=== PATIENT | male | born 1990 | race Caucasian/White ===

== ENCOUNTER 2018-10-20 03:26 | Emergency (ER) | payer MEDICAID ==
--- NOTE | 2018-10-20 04:20 | ED Physician Chart ---
ED Chief Complaint/HPI - Patient Information Date Seen:: 10/20/18 Time Seen:: 04:12 Chief Complaint:: leg pains History of Present Illness:: 28 yr old male with diabetes hypertension with foot pains bilaterally rt worse than left burning type intermittent worse with movement of the ankle worse on rt states does work out in the gym and his feet Allergies:: Allergies Allergy/AdvReac Type Severity Reaction Status Date / Time No Known Allergies Allergy Verified 10/20/18 03:31 Vitals:: Vital Signs - 8 hr 10/20/18 03:31 Temp 97.0 F HR 98 RR 18 BP 162/93 O2 Sat % 98 ED Review of Systems - Review of Systems General/Constitutional: No fever Skin: No skin lesions Head: No headache Eyes: No loss of vision ENT: No earache Neck: No neck pain Cardio Vascular: No chest pain Pulmonary: No SOB GI: No nausea, No vomiting G/U: No dysuria Endocrine: No polyuria ED Past Medical History - Past Medical History Past Medical History: HTN, DM Family Medical History - Family Member Mother Hx Family Diabetes: Yes ED Physical Exam - Physical Examination General/Constitutional: Well-developed, well-nourished Eyes: Lids, conjuctiva normal ENMT: External ears, nose nl Neck: Nontender Respiratory: Nl effort/Exclusion Cardio Vascular: RRR, No murmur, gallop, rubs GI: No organomegaly : No CVA tenderness Extremities: Normal digits & nails (pain swelling tenderness lt ankle harrison with dorsiflexion and plantar flexion) Neuro/Psych: Alert/oriented ED Assessment - Assessment General Assessment: foot ankle leg pain with swelling tendeness lt ankle r/o dvt vs ankle sprain venous doppler ordered ED Septic Shock - . Is Septic Shock (SBP<90, OR Lactate>4 mmol\L) present?: No - <6hrs of presentation: Vital Signs: Vital Signs - 8 hr 10/20/18 03:31 Temp 97.0 F HR 98 RR 18 BP 162/93 O2 Sat % 98 ED Reassessment (Disposition) - Diagnosis Diagnosis:: ankle pain lt r/o sprain vs dvt - Patient Disposition Condition at Disposition:: Stable
[2018-10-20] MEDS ORDERED: Morphine Sulfate 2 mg/mL 1mL Syr ONE ×2 (04:25→06:57)
[2018-10-20] MEDS ORDERED: Morphine Sulfate 2 mg/mL 1mL Syr IV STA (04:28)
[2018-10-20] MEDS ORDERED: Sodium Chloride 0.9% 250 ML IV ONE (04:31)
[2018-10-20 05:20] LABS: INR 0.92 (0.5-1.4); PROTHROMBIN TIME (TEST) 9.6 SECONDS (9.5-11.5)
[2018-10-20 05:22] LABS: ALBUMIN 3.9 gm/dL (4.2-5.5); ALKALINE PHOSPHATASE 77 U/L (34-104); ANION GAP 14.8 (7.0-16.0); BILIRUBIN,TOTAL 0.7 mg/dL (0.3-1.0); BUN - UREA NITROGEN 17 mg/dL (7-25); CALCIUM SERUM 9.7 mg/dL (8.6-10.3); CARBON DIOXIDE 27.8 mEq/L (21.0-31.0); CHLORIDE 96 mEq/L (98-107); CREATININE - SERUM 0.9 mg/dL (0.7-1.3); GFR AFRICAN-AMERICAN > 60.0 ml/min (>90); GFR NON AFRICAN-AMERICAN > 60.0 ml/min; GLUCOSE 226 mg/dL (70-105); POTASSIUM SERUM 3.6 mEq/L (3.5-5.1); SGOT 10 U/L (13-39); SGPT/ALT 11 U/L (7-52); SODIUM SERUM 135 mEq/L (136-145)
[2018-10-20 06:47] LABS: URINE SOURCE CLEAN C
[2018-10-20] MEDS ORDERED: Enoxaparin 100 mg/mL 1mL Syr SUBQ STA (06:52)
[2018-10-20] MEDS ORDERED: Morphine Sulfate 2 mg/mL 1mL Syr IVP STA (06:53)
[2018-10-20 06:55] LABS: HEMOGLOBIN 16.1 gm/dL (12-16); MEAN CELL VOLUME 82.7 fl (80-99); MEAN CORPUSCULAR HEMOGLOBIN 28.9 pg (26.0-30.0); MEAN CORPUSCULAR HGB CONC 34.9 pg (28.0-36.0); PLATELET COUNT 376 Th/cmm (150-400); RED BLOOD COUNT 5.56 Mil/cmm (4.30-5.70); RED CELL DISTRIBUTION WIDTH 12.3 % (11.5-20.0)
[2018-10-20] MEDS ORDERED: Enoxaparin 100 mg/mL 1mL Syr SUBQ ONE (06:57)
[2018-10-20 07:07] LABS: URINE BILIRUBIN NEGATIVE (NEGATIVE); URINE BLOOD SMALL (NEGATIVE); URINE GLUCOSE (UA) 500 mg/dL (NEGATIVE); URINE KETONE NEGATIVE (NEGATIVE); URINE LEUKOCYTE ESTERASE NEGATIVE (NEGATIVE); URINE MICROSCOPIC INDICATED? YES; URINE NITRATE NEGATIVE (NEGATIVE); URINE PH 5.5 (4.6 - 8.0); URINE PROTEIN >=300 mg/dL (NEGATIVE); URINE UROBILINOGEN 0.2 E.U./dL (0.2 - 1.0)
[2018-10-20 07:08] LABS: WHITE BLOOD COUNT 17.5 Th/cmm (4.8-10.8)
[2018-10-20] MEDS ORDERED: cefTRIAXone 2 GM in Sodium Chloride 0.9% 100 ML IV ONE (07:12)
[2018-10-20 07:19] LABS: URINE CLARITY HAZY (CLEAR); URINE COLOR YELLOW
[2018-10-20 07:21] LABS: URINE EPITHELIAL CELLS NONE SEEN /lpf (FEW); URINE RBC NONE SEEN /hpf (0-5)
[2018-10-20 07:22] LABS: URINE BACTERIA OCCASIONAL /hpf (NONE SEEN); URINE COARSE GRANULAR CAST 0-2 /lpf (NONE SEEN); URINE FINE GRANULAR CAST 0-2 /lpf (NONE SEEN)
[2018-10-20 07:33] LABS: BAND NEUTROPHILE 0 % (0-10); LYMPHOCYTE 14 % (20-50); MONOCYTE 6 % (2-10); NEUTROPHILS 80 % (40-80)
--- NOTE | 2018-10-20 10:19 | Diagnostic Imaging Report ---
Bilateral lower extremity DVT study HISTORY: Leg pain and swelling right greater than left COMPARISON: None Technique: Longitudinal and transverse sonographic images of the bilateral lower extremity veins were obtained with doppler analysis. FINDINGS: Assessment of the right side is limited on this exam. There may be thrombus within the right distal superficial femoral vein. Exam of the left side demonstrates patency of the left common femoral, superficial femoral, popliteal, posterior tibial, and peroneal veins. Compressibility and augmentation is demonstrated with no evidence of thrombus formation. IMPRESSION: Inconclusive exam of the right side. Thrombus of the right distal superficial femoral vein cannot be excluded. Recommend repeat examination for further assessment. Final results were administered to the ER on 10/20/2018.
== END 2018-10-20 08:30 | disposition short-term general hospital (02) ==
LOC: ER 03:26
DX: M25.572 Pain in left ankle and joints of left foot (principal); M25.472 Effusion, left ankle; I10 Essential (primary) hypertension; E11.9 Type 2 diabetes mellitus without complications
CPT/HCPCS: 99285; 96365; 96372; 96375; 96376; 93970; 36415; 36416; 82948; 83605; 85007; 85025; 85610; 81001; 83036; 80053; 87040 ×2; J2270 ×2; J1650; J0696

== ENCOUNTER 2019-05-09 09:14 | Emergency (ER) | payer MEDICAID ==
--- NOTE | 2019-05-09 09:53 | ED Physician Chart ---
ED Chief Complaint/HPI - Patient Information Date Seen:: 05/09/19 Time Seen:: 09:46 Chief Complaint:: abscess History of Present Illness:: 29 yr old male with lt buttock cheek abscess for 2 days hx of diabetes and previous episodes of same Allergies:: Allergies Allergy/AdvReac Type Severity Reaction Status Date / Time No Known Allergies Allergy Verified 05/09/19 09:43 ED Review of Systems - Review of Systems General/Constitutional: No fever Skin: Skin lesions Head: No headache Eyes: No loss of vision ENT: No earache Cardio Vascular: No chest pain Pulmonary: No SOB GI: No vomiting G/U: No dysuria Musculoskeletal: No bone or joint pain Endocrine: No polyuria Hematopoietic: No bruising Allergic/Immuno: No urticaria Neurological: No syncope Family Medical History - Family Member Mother Ethnicity: Living Status: Still Living Hx Family Diabetes: Yes ED Septic Shock - . Is Septic Shock (SBP<90, OR Lactate>4 mmol\L) present?: No ED Reassessment (Disposition) - Reassessment Reassessment:: perianal abscess cellulitis - Diagnosis Diagnosis:: as above - Aftercare/Follow up Instructions Notes:: sitz baths f/u pmd return if sxs worsen Medication Prescribed:: keflex doxy - Patient Disposition Discharge/Transfer:: Home Condition at Disposition:: Stable
== END 2019-05-09 10:20 | disposition home or self-care (01) ==
LOC: ER 09:14
DX: K61.0 Anal abscess (principal); J02.9 Acute pharyngitis, unspecified; R21 Rash and other nonspecific skin eruption
CPT/HCPCS: 99283; 96372; J0696; J2001; Z7502